=== PATIENT | female | born 1990 | race African-American/Black ===

== ENCOUNTER 2020-06-21 12:29 | Emergency (ER) | payer MEDICAID ==
[~2020-06-21] VITALS: Ht 162.6 cm; Wt 79.8 kg
[2020-06-21] MEDS ORDERED: SODIUM CHLORIDE 0.9% 1,000 ML IV ONE ×2 (12:45)
[2020-06-21 13:18] LABS: Hemoglobin 10.5 g/dL (12.2-16.2); Mean Corpuscular Hemoglobin 26.1 pg (28.0-32.0); Platelet Count (auto) 138 10^3/uL (140-450)
[2020-06-21 13:23] LABS: Basophils # (auto) 0 10 ^3/uL (0-0.2); Basophils % (auto) 0.2 % (0.0-2.0); Eosinophils # (auto) 0.1 10 ^3/uL (0-0.8); Hematocrit 30.5 % (36.0-46.0); Lymphocytes # (auto) 1.2 10 ^3/uL (0.4-5.4); Mean Corpuscular Hgb Conc. 34.2 g/dL (32.0-36.0); Mean Corpuscular Volume 76.3 fL (80.0-100.0); Monocytes # (auto) 0.8 10 ^3/uL (0-1.3); Monocytes % (auto) 7.6 % (0.0-12.0); Neutrophils # (auto) 8.9 10 ^3/uL (1.6-8.6); Neutrophils % (auto) 80.2 % (37.0-80.0); Red Cell Distribution Width 14.5 % (11.8-14.3)
[2020-06-21 13:35] LABS: Albumin 2.4 g/dL (3.4-5.0); Calcium 7.8 mg/dL (8.5-10.1); Potassium 3.6 mmol/L (3.5-5.1)
[2020-06-21 13:38] LABS: BUN/Creatinine Ratio 13.6; Bilirubin, Total 0.2 mg/dL (0.2-1.0); Total Protein 5.9 g/dL (6.4-8.2)
[2020-06-21 14:26] VITALS: BP 92/47
[2020-06-21 14:59] LABS: Urine Bacteria FEW /hpf (None Seen); Urine Blood Negative /uL (Negative); Urine Mucus FEW (None Seen); Urine WBC 2 /hpf (0 - 5)
== END 2020-06-21 15:39 | disposition home or self-care (01) ==
LOC: EDBD 12:29 → ER 12:29
DX: O26.892 Other specified pregnancy related conditions, second trimester (principal); R55 Syncope and collapse; E86.0 Dehydration; Z3A.22 22 weeks gestation of pregnancy
CPT/HCPCS: 36415; 76805; 80053; 81001; 84702; 85025; 96360; 96361; 99284; J7030